=== PATIENT | female | born 1965 | race Caucasian/White ===

== ENCOUNTER 2017-01-27 15:25 | Inpatient (IN) | payer OTHER ==
[~2017-01-27] VITALS: Ht 162.5 cm; Wt 70.1 kg
[~2017-01-27 15:25] MED LIST: ATARAX,VISTARIL50 MG PO; ATARAX25 MG PO; BACTRIM DS 8001 TA1 PO; CARBIDOPA/LEVOD1 TA1 PO; DAYPRO600 M1 PO; DIAZEPAM2 MG PO; DIFLUCAN150 MG PO; FLEXERIL10 MG PO; HCTZ/TRIAMTEREN1 TAB PO; IMITREX100 MG PO; KEFLEX500 MG PO; LEVOFLOXACIN500 MG PO; LISINOPRIL20 MG PO; MEDROL DOSEPAK4 MG PO; MELATONIN5 M1 PO; MOTRIN800 MG PO; NORFLEX100 MG PO; OXYCODONE HCL5 M1 PO; OXYCONTIN20 MG PO; VIBRAMYCIN100 MG PO; VICODIN 5/500 505 MG PO; VICODIN 500 MG-1 TAB PO; ZANTAC 2525 MG PO; ZOFRAN ODT4 MG SL; ZOFRAN4 MG PO
[2017-01-27 15:34] VITALS: BP 116/80
[2017-01-27 16:09] LABS: BASO % 0.4 % (0.0-1.0); EOS % 0.2 % (1.0-4.0); HEMATOCRIT 43.7 % (37.0-47.0); LYMPH # 1.6 10*3/uL (1.3-4.4); MEAN CELL VOLUME 91.6 fl (81.0-99.0); MEAN CORPUSCULAR HGB 31.4 pg (27.0-31.0); MEAN CORPUSCULAR HGB CONC 34.3 g/dl (33.0-37.0); MEAN PLATELET VOLUME 9.7 fl (9.6-12.3); MONO # 0.4 10*3/uL (0.1-1.0); MONO % 7.4 % (3.0-9.0); NEUT # 3.6 10*3/uL (2.3-7.9); NEUT % 62.8 % (47.0-73.0); PLATELET COUNT AUTOMATED 195 10*3/uL (130-400); RED BLOOD COUNT 4.77 10*6/uL (4.10-5.10); RED CELL DISTRI WIDTH 12.8 % (0-14.5); WHITE BLOOD COUNT 5.7 10*3/uL (4.8-10.8)
[2017-01-27 16:35] LABS: ALBUMIN 4.1 gm/dl (3.1-4.5); ALKALINE PHOSPHATASE 81 U/L (45-117); BILIRUBIN, TOTAL 0.3 mg/dl (0.2-1.0); BUN 10 mg/dl (7-24); CARBON DIOXIDE 30 mmol/L (21-32); CHLORIDE 103 mmol/L (98-107); EST GLOM FILT AFRICAN AMERICAN > 60 ml/min; GLUCOSE 115 mg/dL (65-99); POTASSIUM 3.6 mmol/L (3.5-5.1); SGOT/AST 12 IU/L (3-35); SGPT/ALT 13 U/L (12-78); SODIUM 140 mmol/L (136-145); TOTAL PROTEIN 7.5 gm/dL (6.4-8.2)
[2017-01-27 16:37] LABS: TROPONIN I < 0.015 ng/ml (<0.045)
[2017-01-27 16:52] LABS: BILIRUBIN 1+ (NEGATIVE); BLOOD 1+ (NEGATIVE); CLARITY CLEAR (CLEAR); COLOR YELLOW (YELLOW); GLUCOSE NEGATIVE (NEGATIVE); KETONE TRACE (NEGATIVE); LEUKO ESTERASE NEGATIVE (NEGATIVE); NITRITE NEGATIVE (NEGATIVE); PROTEIN 2+ (NEGATIVE); SPECIFIC GRAVITY >= 1.030 (1.005-1.030); UROBILINOGEN 0.2 E.U./dl (0.2-1.0)
[2017-01-27 17:04] LABS: URINE AMPHETAMINES < 1000 (1000ng/ml); URINE BARBITURATES < 200 (200ng/ml); URINE COCAINE > 300 (300ng/ml)
[2017-01-27 17:05] LABS: BACTERIA 1+; EPITHELIAL CELLS 16-20; URINE REFLEX COMMENT YES (NO)
[2017-01-27 17:20] VITALS: BP 165/75
[2017-01-27 17:28] LABS: INTERNATIONAL NORM RATIO 1.1 (2.0-3.5); PROTHROMBIN TIME 11.2 SECONDS (9.0-12.4)
[2017-01-27 18:06] VITALS: BP 158/77
[2017-01-27 18:26] LABS: CKMB 0.6 ng/ml (0.5-3.6); CPK 52 U/L (26-192)
[2017-01-27 18:29] LABS: TROPONIN I < 0.015 ng/ml (<0.045)
[2017-01-27 19:00] VITALS: BP 148/74
[2017-01-27 20:00] VITALS: BP 147/72
[2017-01-28] VITALS: BP 106/51
[2017-01-28 00:44] LABS: CKMB 0.5 ng/ml (0.5-3.6)
[2017-01-28 00:46] LABS: CPK 36 U/L (26-192); TROPONIN I < 0.015 ng/ml (<0.045)
[2017-01-28 04:00] VITALS: BP 103/66
[2017-01-28 06:40] LABS: CKMB 0.7 ng/ml (0.5-3.6); CPK 34 U/L (26-192); TROPONIN I < 0.015 ng/ml (<0.045)
[2017-01-28 08:00] VITALS: BP 127/73
[2017-01-28] MEDS ORDERED: IMITREX PO (08:21)
[2017-01-28] MEDS ORDERED: ZANTAC 7575 M1 PO (09:14)
[2017-01-28 12:00] VITALS: BP 127/80
[2017-01-28 16:00] VITALS: BP 128/68
[2017-01-28 20:00] VITALS: BP 124/67
[2017-01-29] VITALS: BP 102/62
[2017-01-29 06:27] LABS: BUN 11 mg/dl (7-24); CARBON DIOXIDE 31 mmol/L (21-32); CHLORIDE 106 mmol/L (98-107); EST GLOM FILT AFRICAN AMERICAN > 60 ml/min; GLUCOSE 93 mg/dL (65-99); POTASSIUM 3.6 mmol/L (3.5-5.1); SODIUM 143 mmol/L (136-145)
[2017-01-29 08:00] VITALS: BP 98/50
[2017-01-29 12:00] VITALS: BP 120/86
[2017-01-29 16:00] VITALS: BP 142/61
[2017-01-29 20:00] VITALS: BP 129/69
[2017-01-30] VITALS: BP 124/52
[2017-01-30 04:00] VITALS: BP 118/60
[2017-01-30 07:14] LABS: BASO % 0.4 % (0.0-1.0); EOS # 0.1 10*3/uL (0.0-0.4); EOS % 1.7 % (1.0-4.0); HEMATOCRIT 39.6 % (37.0-47.0); LYMPH # 2.2 10*3/uL (1.3-4.4); LYMPH % 48.5 % (27.0-41.0); MEAN CELL VOLUME 95.7 fl (81.0-99.0); MEAN CORPUSCULAR HGB 31.4 pg (27.0-31.0); MEAN CORPUSCULAR HGB CONC 32.8 g/dl (33.0-37.0); MEAN PLATELET VOLUME 10.2 fl (9.6-12.3); MONO # 0.5 10*3/uL (0.1-1.0); MONO % 11.1 % (3.0-9.0); NEUT # 1.7 10*3/uL (2.3-7.9); NEUT % 38.1 % (47.0-73.0); PLATELET COUNT AUTOMATED 157 10*3/uL (130-400); RED BLOOD COUNT 4.14 10*6/uL (4.10-5.10); RED CELL DISTRI WIDTH 12.8 % (0-14.5); WHITE BLOOD COUNT 4.6 10*3/uL (4.8-10.8)
[2017-01-30 08:00] VITALS: BP 158/90
[2017-01-30] MEDS ORDERED: CARBIDOPA/LEVOD1 TA1 PO (10:27)
[2017-01-30] MEDS ORDERED: METHOCARBAMOL750 M1 PO (10:27)
[2017-01-30] MEDS ORDERED: ATARAX,VISTARIL50 MG PO (10:28)
== END 2017-01-30 12:10 | disposition home or self-care (01) | DRG 896 ==
LOC: ED 15:25 → 5E 16:49 → EDHOLD 16:49 → 5E 17:30
PROVIDERS: Emergency Medicine; Internal Medicine; Student in an Organized Health Care Education/Training Program
DX: F11.23 Opioid dependence with withdrawal (principal); N17.0 Acute kidney failure with tubular necrosis; M94.0 Chondrocostal junction syndrome [Tietze]; F17.200 Nicotine dependence, unspecified, uncomplicated; K21.9 Gastro-esophageal reflux disease without esophagitis; R73.9 Hyperglycemia, unspecified; I10 Essential (primary) hypertension; F14.10 Cocaine abuse, uncomplicated; Z71.6 Tobacco abuse counseling; Z80.1 Family history of malignant neoplasm of trachea, bronchus and lung; Z80.41 Family history of malignant neoplasm of ovary; Z88.0 Allergy status to penicillin; Z79.2 Long term (current) use of antibiotics; Z79.899 Other long term (current) drug therapy

== ENCOUNTER 2017-02-26 13:44 | Emergency (ER) | payer OTHER ==
[~2017-02-26] VITALS: Wt 47.2 kg
[~2017-02-26 13:44] MED LIST changes: +IMITREX PO; +METHOCARBAMOL750 M1 PO; +ZANTAC 7575 M1 PO
[2017-02-26] MEDS ORDERED: SUBOXONE 8 MG-1 EACH SL (14:00)
[2017-02-26] MEDS ORDERED: LISINOPRIL20 MG PO (14:02)
[2017-02-26] MEDS ORDERED: HYDROCHLOROTHIA50 M1 PO (14:04)
== END 2017-02-26 14:51 | disposition left against medical advice (07) ==
LOC: ED 13:44
DX: R33.9 Retention of urine, unspecified (principal); F17.200 Nicotine dependence, unspecified, uncomplicated; Z88.0 Allergy status to penicillin

== ENCOUNTER 2017-06-13 15:52 | Emergency (ER) | payer OTHER ==
[~2017-06-13] VITALS: Ht 165.1 cm; Wt 47.6 kg
[~2017-06-13 15:52] MED LIST changes: +HYDROCHLOROTHIA50 M1 PO; +SUBOXONE 8 MG-1 EACH SL
[2017-06-13] MEDS ORDERED: [UNRECOGNIZED DRUG - OTHER] PO (16:10)
[2017-06-13] MEDS ORDERED: ATARAX,VISTARIL50 MG PO (16:10)
[2017-06-13] MEDS ORDERED: PANTOPRAZOLE SO40 MG PO (16:10)
[2017-06-13] MEDS ORDERED: TRIAMTERENE-HC1 EACH PO (16:11)
[2017-06-14] MEDS ORDERED: ANAPROX DS550 MG PO (19:58)
== END 2017-06-13 18:13 | disposition home or self-care (01) ==
LOC: ED 15:52
DX: S01.81XA Laceration without foreign body of other part of head, initial encounter (principal); Z88.0 Allergy status to penicillin; Z79.899 Other long term (current) drug therapy; F17.200 Nicotine dependence, unspecified, uncomplicated; W01.198A Fall on same level from slipping, tripping and stumbling with subsequent striking against other object, initial encounter; Y93.89 Activity, other specified; Y92.090 Kitchen in other non-institutional residence as the place of occurrence of the external cause; Y99.8 Other external cause status

== ENCOUNTER 2017-06-14 18:15 | Emergency (ER) | payer OTHER ==
[~2017-06-14] VITALS: Ht 165.1 cm; Wt 47.2 kg
[~2017-06-14 18:15] MED LIST changes: +PANTOPRAZOLE SO40 MG PO; +TRIAMTERENE-HC1 EACH PO; +[UNRECOGNIZED DRUG - OTHER] PO
[2017-06-14] MEDS ORDERED: ANAPROX DS550 MG PO (19:58)
== END 2017-06-14 22:58 | disposition home or self-care (01) ==
LOC: ED 18:15
DX: S01.81XD Laceration without foreign body of other part of head, subsequent encounter (principal); R51 Headache; H53.8 Other visual disturbances; F17.200 Nicotine dependence, unspecified, uncomplicated; Z48.01 Encounter for change or removal of surgical wound dressing; Z88.0 Allergy status to penicillin; Z79.899 Other long term (current) drug therapy; X58.XXXD Exposure to other specified factors, subsequent encounter; Y92.9 Unspecified place or not applicable; Y99.9 Unspecified external cause status

== ENCOUNTER 2017-07-27 14:51 | Inpatient (IN) | payer OTHER ==
[~2017-07-27] VITALS: Ht 165.1 cm; Wt 43.1 kg
--- NOTE | ~2017-07-27 | ST ---
[place], [place] EXERCISE STRESS TEST REPORT NAME: BIANKA HERNANDEZ UNIT #: [id number] ROOM: [facility] DOCTOR: JACKELINE RAM MD BIRTHDATE: [birth year] DOS: 07/28/2017 LEXISCAN STRESS EKG REPORT REFERRING PHYSICIAN: Dr. Haque. INDICATION: Central chest pain. The patient underwent standard protocol Lexiscan stress EKG. The patient's baseline EKG was normal sinus rhythm with nonspecific ST-T wave changes. The patient's baseline heart rate was 70 with the blood pressure of 112/80. The patient's peak heart rate was 106 with the blood pressure 118/78. The patient experienced no arrhythmias or EKG changes. The patient did have atypical chest pain. SUMMARY OF FINDINGS: Unremarkable Lexiscan stress EKG. Please see separate report for perfusion scan results. JACKELINE RAM MD CM:STRESS:EXERCISE STRESS TEST REPORT [id number] JACKELINE RAM MD
[~2017-07-27 14:51] MED LIST changes: +ANAPROX DS550 MG PO
--- NOTE | 2017-07-27 15:02 | NUR ---
1451 PT TAKEN DIRECTLY TO ROOM 13 PLACED ON CASKET TRIMMER. PT STATES HER CHEST PAIN STARTED APPROX AN HOUR PRIOT TO ARRIVAL AFTER SHOOTING HEROIN INTO HER ARM. PT STATES SHE USUS ON A DAILY BASIS. MOY MENDOZA RN.
[2017-07-27 15:04] VITALS: BP 148/93
[2017-07-27 15:19] VITALS: BP 148/93
[2017-07-27 15:21] VITALS: BP 133/73
[2017-07-27 15:34] LABS: BASO % 0.2 % (0.0-1.0); EOS % 0.2 % (1.0-4.0); HEMATOCRIT 39.3 % (37.0-47.0); HEMOGLOBIN 13.3 g/dl (12.0-16.0); LYMPH # 1.5 10*3/uL (1.3-4.4); LYMPH % 30.7 % (27.0-41.0); MEAN CORPUSCULAR HGB 31.8 pg (27.0-31.0); MEAN CORPUSCULAR HGB CONC 33.8 g/dl (33.0-37.0); MEAN PLATELET VOLUME 9.1 fl (9.6-12.3); MONO # 0.4 10*3/uL (0.1-1.0); MONO % 8.1 % (3.0-9.0); NEUT # 2.9 10*3/uL (2.3-7.9); NEUT % 60.4 % (47.0-73.0); PLATELET COUNT AUTOMATED 225 10*3/uL (130-400); RED BLOOD COUNT 4.18 10*6/uL (4.10-5.10); RED CELL DISTRI WIDTH 13.5 % (0-14.5); WHITE BLOOD COUNT 4.7 10*3/uL (4.8-10.8)
[2017-07-27 15:46] LABS: ACT PARTIAL THROMBO TIME 22.4 SECONDS (20.8-31.5); INTERNATIONAL NORM RATIO 1.1 (2.0-3.5)
[2017-07-27 15:49] LABS: ALBUMIN 3.1 gm/dl (3.1-4.5); ALKALINE PHOSPHATASE 81 U/L (45-117); BUN 15 mg/dl (7-24); CHLORIDE 106 mmol/L (98-107); CREATININE 0.88 mg/dL (0.55-1.02); LIPASE 95 U/L (73-393); MAGNESIUM 2.6 mg/dL (1.5-2.1); POTASSIUM 3.9 mmol/L (3.5-5.1); SGOT/AST 11 IU/L (3-35); SGPT/ALT 18 U/L (12-78); SODIUM 139 mmol/L (136-145); TOTAL PROTEIN 7.5 gm/dL (6.4-8.2)
[2017-07-27 15:51] LABS: TROPONIN I < 0.015 ng/ml (<0.045)
[2017-07-27 16:19] VITALS: BP 119/61
[2017-07-27 17:11] VITALS: BP 128/82
--- NOTE | 2017-07-27 18:15 | NUR ---
A 52, admitted to 5E, under the services of JOHNATHAN Stallworth DO with a diagnosis of CHEST PAIN. Chief complaint is CHEST PAIN. Patient arrived via CART AND RN from ER. Monitor applied. Initial assessment completed. Vital signs taken and recorded. JOHNATHAN STALLWORTH DO notified of admission to the unit. Orders received. See assessment for past medical history, medications and allergies. Patient and/or family oriented to unit. visitation policy reviewed. Clothing/patient valuable form completed. KERMIT STRINGER
[2017-07-27 18:26] LABS: ETHYL ALCOHOL < 3.0 mg/dl (<3)
[2017-07-27 18:39] LABS: URINE AMPHETAMINES < 1000 (1000ng/ml); URINE BARBITURATES < 200 (200ng/ml); URINE BENZODIAZEPINES < 200 (200ng/ml); URINE CANNABINOIDS (THC) < 50 (50ng/ml); URINE COCAINE > 300 (300ng/ml); URINE METHADONE < 300 (300ng/ml); URINE OPIATES > 300 (300ng/ml)
[2017-07-27 18:41] LABS: URINE PHENCYCLIDINE < 25 (25ng/ml)
--- NOTE | 2017-07-27 19:30 | NUR ---
PT. AWAKE, ALERT, AND ORIENTED X 3. PT. LAYING IN BED AT THIS TIME. PT. DENIES CP, SOB, OR PAIN. CALL LIGHT WITHIN REACH, WHEELS LOCKED, BED IN LOWEST POSITION. SEE SHIFT ASSESSMENT.
--- NOTE | 2017-07-27 19:52 | NUR ---
DR ROLDAN WAS NOTIFIED AND DR KAM RETURNED CALL. WAS ADVISED OF CONSULT.
--- NOTE | 2017-07-27 19:53 | NUR ---
MESFIN MAYO WAS CALLED AND IS SENDING MEDICATION LIST VIA FAX.
[2017-07-27 20:00] VITALS: BP 134/74
--- NOTE | 2017-07-27 20:28 | NUR ---
CALLED [facility] AT THIS TIME TO VERIFY PTS. HOME MEDS. [facility] PREVIOUSLY SENT OVER A LIST OF MEDS WELL. MEDS VERIFIED WITH PT. ACCORDING TO [facility] THE PT. NO LONGER HAS PRESCRIPTIONS FOR THE LISTED HYDROCHLOROTHIAZIDE, LISINOPRIL, OR NALOXONE THAT WAS LISTED IN THE SYSTEM UNDER HOME MEDS.
--- NOTE | 2017-07-27 20:40 | NUR ---
SPOKE WITH PT. AT THIS TIME REGARDING CODE STATUS LISTED IN SYSTEM OF DNR-CCA. NO SIGNATURE WAS ON FILE AT THE TIME. PT. VERIFIED DESIRE TO BE DNR-CCA AND SIGNED APPROPRIATE DOCUMENTATION. WILL CALL TO UPDATE PHYSICIAN AT THIS TIME.
[2017-07-27] MEDS ORDERED: DILTIAZEM 24HR120 MG PO (20:43)
[2017-07-27 21:34] LABS: BILIRUBIN NEGATIVE (NEGATIVE); BLOOD NEGATIVE (NEGATIVE); CLARITY CLEAR (CLEAR); COLOR YELLOW (YELLOW); GLUCOSE NEGATIVE (NEGATIVE); KETONE NEGATIVE (NEGATIVE); LEUKO ESTERASE NEGATIVE (NEGATIVE); NITRITE NEGATIVE (NEGATIVE); SPECIFIC GRAVITY 1.015 (1.005-1.030)
[2017-07-27 21:42] LABS: BACTERIA 1+; EPITHELIAL CELLS 50-60; MUCOUS TRACE; RBC 0-2 rbc/hpf (0-2)
--- NOTE | 2017-07-27 21:58 | NUR ---
PT. C/O NAUSEA AT THIS TIME, ZOFRAN GIVEN. WILL ASSESS EFFECTIVENESS.
--- NOTE | 2017-07-27 22:01 | NUR ---
SPOKE WITH DR. LEBLANC AT THIS TIME REGARDING POTENTIAL INTERACTION BETWEEN PTS. LISTED SIMVASTATIN AND DILTIAZEM HOME MEDS. PER DR. LEBLANC, OK TO ADD MEDS THAT PTS. PHARMACY STATED SHE IS PRESCRIBED AND TAKING.
[2017-07-27] MEDS ORDERED: SIMVASTATIN20 MG PO (22:02)
--- NOTE | 2017-07-27 23:04 | NUR ---
PT. STATED RELIEF OF NAUSEA AT THIS TIME.
[2017-07-28] VITALS: BP 111/62
--- NOTE | 2017-07-28 03:47 | NUR ---
24 HOUR CHART CHECK COMPLETE.
[2017-07-28 06:10] LABS: BASO % 0.5 % (0.0-1.0); EOS # 0.1 10*3/uL (0.0-0.4); EOS % 1.1 % (1.0-4.0); HEMATOCRIT 35.7 % (37.0-47.0); LYMPH # 2.5 10*3/uL (1.3-4.4); MEAN CELL VOLUME 95.2 fl (81.0-99.0); MEAN CORPUSCULAR HGB CONC 33.6 g/dl (33.0-37.0); MEAN PLATELET VOLUME 9.4 fl (9.6-12.3); MONO # 0.7 10*3/uL (0.1-1.0); MONO % 10.8 % (3.0-9.0); NEUT # 3.1 10*3/uL (2.3-7.9); NEUT % 48.4 % (47.0-73.0); PLATELET COUNT AUTOMATED 220 10*3/uL (130-400); RED BLOOD COUNT 3.75 10*6/uL (4.10-5.10); RED CELL DISTRI WIDTH 13.6 % (0-14.5); WHITE BLOOD COUNT 6.4 10*3/uL (4.8-10.8)
[2017-07-28 06:27] LABS: ALKALINE PHOSPHATASE 72 U/L (45-117); BUN 18 mg/dl (7-24); CHLORIDE 105 mmol/L (98-107); CREATININE 0.84 mg/dL (0.55-1.02); POTASSIUM 3.9 mmol/L (3.5-5.1); SGOT/AST 19 IU/L (3-35); SGPT/ALT 19 U/L (12-78); SODIUM 141 mmol/L (136-145); TOTAL PROTEIN 6.3 gm/dL (6.4-8.2)
--- NOTE | 2017-07-28 06:28 | NUR ---
This nurse was asked to evaluate patient's left wrist. Patient left wrist has a 1.5cm x 1.5cm x 0.5cm. No redness noted. Hard raised area noted. No drainage at present time. Patient stated that it occured two weeks ago and was draining pus. Patient stated it was a size of the grape before it started draining. Patient is afebile. Patient stated she injects in this site.
[2017-07-28 06:33] LABS: THYROID STIM HORMONE (HS) 0.103 uIU/ml (0.358-4.75)
[2017-07-28 07:01] LABS: VITAMIN D, 25-HYDROXY 17.6 ng/mL (30-100)
[2017-07-28 08:00] VITALS: BP 132/58
--- NOTE | 2017-07-28 08:00 | NUR ---
[employer] C[employer]IER VS. STATES THEY HAVE BEEN EVICTED AND AER HOMELESS. TRYING TO FIND THEM PLACE TO LIVE. DC BARBER INSTRUCTOR WILL GET HER INFO ON HOMELESS SHELTERS.
[2017-07-28 12:00] VITALS: BP 118/60
--- NOTE | 2017-07-28 12:20 | NUR ---
Provided patient with homeless long term list and phone number/address to the [facility] [employer].
--- NOTE | 2017-07-28 12:25 | NUR ---
NICODREM PATCHED PLACED PER PT. REQUEST.
--- NOTE | 2017-07-28 13:15 | NUR ---
INFORMED CONSENT OBTAINED FOR LEXISCAN NUCLEAR STRESS TEST WITH DR. RAM. RESTING EKG NSR WITH A RESTING HR OF 70 WITH BP OF 112/80. LUNGS CLEAR WITH SPO2 OF 100% ON ROOM AIR. PT COMPLETED A 1:00 LEXISCAN PROTOCOL RECEIVING LEXISCAN 0.4 MG IV OVER 10 SECONDS. HAD NO EKG CHANGES. DID C/O CHEST DISCOMFORT THAT WAS RELIEVED IN RECOVERY. HAD A PEAK HR OF 106 WITH BP OF 108/78. LAST RECOVERY HR OF 91 WITH BP OF 118/78. AWAITING SCANNING IN STABLE CONDITION.
--- NOTE | 2017-07-28 14:35 | NUR ---
VISTARIL GIVEN FOR C/O ANXIETY, ROBAXIN GIVEN FOR C/O MUSCLE ACHES, ZOFRAN GIVEN FOR C/O NAUSEA. WILL MONITOR.
[2017-07-28 16:00] VITALS: BP 126/54
--- NOTE | 2017-07-28 19:40 | NUR ---
PT. AWAKE, ALERT, AND ORIENTED X 3. PT. LAYING IN BED AT THIS TIME. PT. CURRENTLY DENIES N/V/D, CP, SOB, W/D SYMPTOMS. PERRLA, HRR, PPP, NO EDEMA, LUNGS CLEAR T/O, TRACK BE SLIGHTLY ELEVATED (UNCHANGED FROM PREVIOUS SHIFT), BOWEL SOUNDS NORMO X 4, PT. AMBULATORY. CALL LIGHT WITHIN REACH, BED IN LOWEST POSITION, WHEELS LOCKED.
[2017-07-28 20:00] VITALS: BP 106/49
[2017-07-29] VITALS: BP 90/51
[2017-07-29 08:00] VITALS: BP 113/56
[2017-07-29 12:00] VITALS: BP 100/46
[2017-07-29 16:00] VITALS: BP 95/50
--- NOTE | 2017-07-29 16:14 | NUR ---
D/C PLANNING: PATIENT WANTS TO DO INPATIENT TREATMENT. CLIENT MANAGER WORKING ON FINDING AN OPEN BED FOR PATIENT. BRAD JEONG B.A. CLIENT MANAGER
--- NOTE | 2017-07-29 20:00 | NUR ---
Patient resting. Responding to scheduled medications with fewer complaints of pain and anxiety.
--- NOTE | 2017-07-29 22:00 | NUR ---
Patient displaying withdrawal symptoms, including: irritability, anxiousness, restlessness and agitation. Scheduled/PRN medications provided, SEE EMAR. Will continue to monitor medication effectiveness.
[2017-07-30] VITALS: BP 87/41; BP 92/50
--- NOTE | 2017-07-30 | NUR ---
Patient resting. Responding to scheduled medications with fewer complaints of pain and anxiety.
--- NOTE | 2017-07-30 06:45 | NUR ---
Patient resting. Responding to scheduled medications with fewer complaints of pain and anxiety.
--- NOTE | 2017-07-30 07:40 | NUR ---
Shift chart check completed.
[2017-07-30 08:00] VITALS: BP 97/50
--- NOTE | 2017-07-30 10:31 | NUR ---
PATIENT DENIES ANY PAIN OR DISCOMFORT AT THIS TIME. WILL CONTINUE TO MONITOR.
--- NOTE | 2017-07-30 10:33 | NUR ---
PATIENT REFUSED TEDS
[2017-07-30 12:00] VITALS: BP 91/50
[2017-07-30 16:00] VITALS: BP 101/48
--- NOTE | 2017-07-30 22:00 | NUR ---
Patient resting. Responding to scheduled medications with fewer complaints of pain and anxiety.
[2017-07-31] VITALS: BP 87/53; BP 90/56
--- NOTE | 2017-07-31 | NUR ---
SLEEPING. RESPIRATIONS EASY. VSS. CALL LIGHT WITHIN REACH
[2017-07-31 06:16] LABS: BASO % 0.5 % (0.0-1.0); EOS # 0.1 10*3/uL (0.0-0.4); EOS % 1.9 % (1.0-4.0); HEMATOCRIT 34.6 % (37.0-47.0); HEMOGLOBIN 11.2 g/dl (12.0-16.0); LYMPH # 2.8 10*3/uL (1.3-4.4); LYMPH % 47.9 % (27.0-41.0); MEAN CELL VOLUME 97.2 fl (81.0-99.0); MEAN CORPUSCULAR HGB 31.5 pg (27.0-31.0); MEAN CORPUSCULAR HGB CONC 32.4 g/dl (33.0-37.0); MEAN PLATELET VOLUME 10.1 fl (9.6-12.3); MONO # 0.6 10*3/uL (0.1-1.0); MONO % 10.3 % (3.0-9.0); NEUT # 2.3 10*3/uL (2.3-7.9); NEUT % 39.1 % (47.0-73.0); PLATELET COUNT AUTOMATED 210 10*3/uL (130-400); RED BLOOD COUNT 3.56 10*6/uL (4.10-5.10); RED CELL DISTRI WIDTH 13.5 % (0-14.5); WHITE BLOOD COUNT 5.8 10*3/uL (4.8-10.8)
--- NOTE | 2017-07-31 06:30 | NUR ---
Patient resting. Responding to scheduled medications with fewer complaints of pain and anxiety.
[2017-07-31 06:54] LABS: CREATININE 0.96 mg/dL (0.55-1.02)
--- NOTE | 2017-07-31 07:27 | NUR ---
Shift chart check completed.
[2017-07-31 08:42] VITALS: BP 100/50
[2017-07-31 12:00] VITALS: BP 100/48
[2017-07-31 16:00] VITALS: BP 100/50
[2017-07-31 20:00] VITALS: BP 94/44
--- NOTE | 2017-07-31 20:00 | NUR ---
REQUESTING NICODERM PATCH. NICODERM PATCH APPLIED PER M.D. ORDERS/PT'S REQUEST. VOICES NO OTHER C/O PAIN OR DISCOMFORT. CALL LIGHT WITHIN REACH.
--- NOTE | 2017-07-31 21:26 | NUR ---
MEDICATED WITH TRAZODONE FOR INSOMNIA, REQUIP FOR RESTLESSNESS & ROBAXIN FOR ANXIETY.
[2017-08-01] VITALS: BP 96/41
--- NOTE | 2017-08-01 01:00 | NUR ---
RESTING IN BED WITH EYES CLOSED; MEDICATIONS GIVEN EARLIER APPARENTLY EFFECTIVE.
[2017-08-01 08:00] VITALS: BP 102/60
[2017-08-01 12:00] VITALS: BP 106/54
[2017-08-01] MEDS ORDERED: Vitamin D PO (13:17)
--- NOTE | 2017-08-01 13:31 | NUR ---
SPOKE WITH DR CROWLEY REGARDING DISCHARGE ABOUT PT NOT HAVING ANYWHERE TO GO UNTIL TOMORROW, HE STATES IT'S OK TO HOLD DISCHARGE UNTIL TOMORROW WHEN PT HAS ARRANGEMENTS MADE.
[2017-08-01 15:53] VITALS: BP 90/50
[2017-08-01 20:00] VITALS: BP 100/42
--- NOTE | 2017-08-01 20:00 | NUR ---
RESTING IN BED WITH HOB SLIGHTLY ELEVATED. PT. VOICES NO C/O PAIN OR DISCOMFORT AT THIS TIME; NO DISTRESS NOTED. CALL LIGHT WITHIN REACH.
--- NOTE | 2017-08-01 22:10 | NUR ---
MEDICATED WITH ROBAXIN FOR ANXIETY, TRAZODONE FOR SLEEP & REQUIP FOR RESTLESSNESS.
[2017-08-02] VITALS: BP 105/50
--- NOTE | 2017-08-02 06:35 | NUR ---
Medications received at HS effective to decrease s/s of withrawal and allow to rest quietly through the night. Denied need for other medications. Will continue to monitor.
[2017-08-02 08:00] VITALS: BP 107/48
--- NOTE | 2017-08-02 08:03 | NUR ---
PT IN BED SLEEPING, AROUSES EASILY. NO DISTRESS NOTED. LUNGS CLEAR AND DIMINISHED. 3L NC. 3+ LLE EDEMA NOTED. PT DENIES PAIN AT PRESENT TIME. PLEASANT AND COOPERATIVE.
--- NOTE | 2017-08-02 12:18 | NUR ---
Discharge instructions reviewed with patient/family. Patient receptive and verbalizes understanding. Follow-up care arranged. Written instructions given to patient/family. MOY AMAYA
== END 2017-08-02 12:13 | DRG 391 ==
LOC: ED 14:51 → EDHOLD 17:33 → 5E 17:33
PROVIDERS: Internal Medicine; Nurse Practitioner Family; ADMIT Internal Medicine
PROC: 3E073KZ Introduction of Other Diagnostic Substance into Coronary Artery, Percutaneous Approach (ICD-10-PCS; principal; 2017-07-28)
PROC: 4A02XM4 Measurement of Cardiac Total Activity, External Approach (ICD-10-PCS; principal; 2017-07-28)
DX: K21.9 Gastro-esophageal reflux disease without esophagitis (principal); J18.9 Pneumonia, unspecified organism; E44.0 Moderate protein-calorie malnutrition; F11.23 Opioid dependence with withdrawal; Z68.1 Body mass index [BMI] 19.9 or less, adult; R07.89 Other chest pain; F41.9 Anxiety disorder, unspecified; D72.819 Decreased white blood cell count, unspecified; F14.10 Cocaine abuse, uncomplicated; L90.5 Scar conditions and fibrosis of skin; G25.81 Restless legs syndrome; R73.03 Prediabetes; I25.10 Atherosclerotic heart disease of native coronary artery without angina pectoris; D64.9 Anemia, unspecified; F17.210 Nicotine dependence, cigarettes, uncomplicated; I10 Essential (primary) hypertension; E55.9 Vitamin D deficiency, unspecified; G43.909 Migraine, unspecified, not intractable, without status migrainosus; Z88.0 Allergy status to penicillin; Z98.891 History of uterine scar from previous surgery; Z90.710 Acquired absence of both cervix and uterus; Z82.49 Family history of ischemic heart disease and other diseases of the circulatory system; Z80.1 Family history of malignant neoplasm of trachea, bronchus and lung; Z80.41 Family history of malignant neoplasm of ovary; Z79.899 Other long term (current) drug therapy

== ENCOUNTER → 2019-02-10 | Outpatient (CLI) | payer OTHER ==
[~2019-02-10] MED LIST changes: +DILTIAZEM 24HR120 MG PO; +SIMVASTATIN20 MG PO; +Vitamin D PO
[2019-02-10 13:23] LABS: HEMATOCRIT 38.6 % (37.0-47.0); HEMOGLOBIN 12.9 g/dl (12.0-16.0); MEAN CELL VOLUME 98.5 fl (81.0-99.0); MEAN CORPUSCULAR HGB 32.9 pg (27.0-31.0); MEAN CORPUSCULAR HGB CONC 33.4 g/dl (33.0-37.0); MEAN PLATELET VOLUME 10.1 fl (9.6-12.3); RED BLOOD COUNT 3.92 10*6/uL (4.10-5.10); WHITE BLOOD COUNT 4.8 10*3/uL (4.8-10.8)
[2019-02-10 13:51] LABS: ALKALINE PHOSPHATASE 75 U/L (45-117); BUN 13 mg/dl (7-24); CHLORIDE 107 mmol/L (98-107); CHOLESTEROL 271 mg/dL (<200); CREATININE 0.86 mg/dL (0.55-1.02); HDL CHOLESTEROL 81 mg/dl (40-60); LDL CHOLESTEROL 159 mg/dL (9-159); POTASSIUM 3.6 mmol/L (3.5-5.1); SGOT/AST 44 IU/L (3-35); SGPT/ALT 75 U/L (12-78); SODIUM 141 mmol/L (136-145); TOTAL PROTEIN 7.5 gm/dL (6.4-8.2); TRIGLYCERIDES 154 mg/dl (<150); VLDL CHOLESTEROL 31 mg/dL (6-40)
== END | disposition home or self-care (01) ==
LOC: LAB 11:39
PROVIDERS: Family Medicine
DX: J43.8 Other emphysema (principal); I10 Essential (primary) hypertension; I65.23 Occlusion and stenosis of bilateral carotid arteries; F17.200 Nicotine dependence, unspecified, uncomplicated; R06.02 Shortness of breath

== ENCOUNTER → 2019-11-07 | Outpatient (CLI) | payer OTHER | END | disposition home or self-care (01) | LOC: RAD 14:25 | DX: R06.02 Shortness of breath (principal); R05 Cough ==

== ENCOUNTER → 2019-11-15 | Outpatient (CLI) | payer OTHER ==
[2019-11-15 15:16] LABS: HEMATOCRIT 38.1 % (37.0-47.0); MEAN CELL VOLUME 95.3 fl (81.0-99.0); MEAN CORPUSCULAR HGB 32.5 pg (27.0-31.0); MEAN CORPUSCULAR HGB CONC 34.1 g/dl (33.0-37.0); MEAN PLATELET VOLUME 9.9 fl (9.6-12.3); RED CELL DISTRI WIDTH 12.7 % (0-14.5); WHITE BLOOD COUNT 9.6 10*3/uL (4.8-10.8)
[2019-11-15 15:31] LABS: ALBUMIN 4.3 gm/dl (3.1-4.5); ALKALINE PHOSPHATASE 104 U/L (45-117); BUN 19 mg/dl (7-24); CHLORIDE 106 mmol/L (98-107); CHOLESTEROL 269 mg/dL (<200); HDL CHOLESTEROL 102 mg/dl (40-60); LDL CHOLESTEROL 142 mg/dL (9-159); SGOT/AST 26 IU/L (3-35); SGPT/ALT 54 U/L (12-78); SODIUM 139 mmol/L (136-145); TOTAL PROTEIN 7.9 gm/dL (6.4-8.2); TRIGLYCERIDES 126 mg/dl (<150); VLDL CHOLESTEROL 25 mg/dL (6-40)
== END ==
LOC: LAB 14:52
PROVIDERS: Nurse Practitioner Family
DX: R03.0 Elevated blood-pressure reading, without diagnosis of hypertension (principal); R53.83 Other fatigue; R05 Cough

== ENCOUNTER → 2021-03-07 | Outpatient (CLI) | payer OTHER ==
[2021-03-07 13:39] LABS: VITAMIN D, 25-HYDROXY 32.7 ng/mL (30-100)
[2021-03-07 13:50] LABS: ALBUMIN 3.4 gm/dl (3.1-4.5); ALKALINE PHOSPHATASE 108 U/L (45-117); BUN 12 mg/dl (7-24); CHLORIDE 104 mmol/L (98-107); CHOLESTEROL 248 mg/dL (<200); CPK 45 U/L (26-192); CREATININE 1.02 mg/dL (0.55-1.02); FREE T4 1.24 ng/dl (0.76-1.46); LDL CHOLESTEROL 143 mg/dL (9-159); POTASSIUM 3.7 mmol/L (3.5-5.1); SGOT/AST 33 IU/L (3-35); SGPT/ALT 31 U/L (12-78); SODIUM 137 mmol/L (136-145); TOTAL PROTEIN 7.4 gm/dL (6.4-8.2); TRIGLYCERIDES 170 mg/dl (<150)
[2021-03-07 13:56] LABS: THYROID STIM HORMONE (HS) 0.618 uIU/ml (0.358-4.75)
== END | disposition home or self-care (01) ==
LOC: LAB 11:27
PROVIDERS: ATTEND Family Medicine
DX: I10 Essential (primary) hypertension (principal); K21.9 Gastro-esophageal reflux disease without esophagitis; E78.00 Pure hypercholesterolemia, unspecified; E55.9 Vitamin D deficiency, unspecified

== ENCOUNTER 2021-04-07 10:33 | Emergency (ER) | payer OTHER ==
[~2021-04-07] VITALS: Wt 68.0 kg
[2021-04-07 12:54] LABS: BASO % 0.2 % (0.0-1.0); HEMATOCRIT 33.7 % (37.0-47.0); LYMPH % 10.2 % (27.0-41.0); MEAN CELL VOLUME 98.8 fl (81.0-99.0); MEAN CORPUSCULAR HGB 34.3 pg (27.0-31.0); MEAN CORPUSCULAR HGB CONC 34.7 g/dl (33.0-37.0); MEAN PLATELET VOLUME 9.7 fl (9.6-12.3); MONO # 1.1 10*3/uL (0.1-1.0); MONO % 11.1 % (3.0-9.0); NEUT # 7.5 10*3/uL (2.3-7.9); NEUT % 78.1 % (47.0-73.0); PLATELET COUNT AUTOMATED 279 10*3/uL (130-400); RED BLOOD COUNT 3.41 10*6/uL (4.10-5.10); WHITE BLOOD COUNT 9.6 10*3/uL (4.8-10.8)
[2021-04-07 13:10] LABS: ALBUMIN 3.3 gm/dl (3.1-4.5); ALKALINE PHOSPHATASE 92 U/L (45-117); BUN 16 mg/dl (7-24); CHLORIDE 101 mmol/L (98-107); CREATININE 1.04 mg/dL (0.55-1.02); LIPASE 182 U/L (73-393); POTASSIUM 2.9 mmol/L (3.5-5.1); SGOT/AST 27 IU/L (3-35); SGPT/ALT 24 U/L (12-78); SODIUM 136 mmol/L (136-145); TOTAL PROTEIN 7.6 gm/dL (6.4-8.2)
[2021-04-07 13:13] LABS: TROPONIN I < 0.015 ng/ml (<0.045)
[2021-04-07] MEDS ORDERED: POTASSIUM CHLO20 ME3 PO ×3 (14:47→15:03)
== END 2021-04-07 14:54 | disposition home or self-care (01) ==
LOC: ED 10:33
PROVIDERS: Physician Assistant
DX: R60.0 Localized edema (principal); E87.6 Hypokalemia; J44.9 Chronic obstructive pulmonary disease, unspecified; F17.200 Nicotine dependence, unspecified, uncomplicated; Z88.0 Allergy status to penicillin; Z79.899 Other long term (current) drug therapy; Z98.890 Other specified postprocedural states; Z90.711 Acquired absence of uterus with remaining cervical stump